=== PATIENT | male | born 1970 | race African-American/Black ===

== ENCOUNTER 2020-05-01 20:02 | Emergency (ER) | payer MEDICAID ==
[~2020-05-01] VITALS: Ht 172.7 cm; Wt 85.0 kg
[~2020-05-01 20:02] MED LIST: AMLODIPINE; ATENOLOL; HYDROCHLOROTHIAZIDE; PLAVIX
[2020-05-01 20:06] VITALS: BP 141/93
[2020-05-01] MEDS ORDERED: IBUPROFEN 600MG TABLET PO ONE (20:30)
== END 2020-05-01 21:27 | disposition home or self-care (01) ==
LOC: ER 20:02
DX: G89.29 Other chronic pain (principal); M79.605 Pain in left leg; I10 Essential (primary) hypertension; F12.90 Cannabis use, unspecified, uncomplicated; Z87.828 Personal history of other (healed) physical injury and trauma
CPT/HCPCS: 99281

== ENCOUNTER 2023-03-22 15:11 | Emergency (ER) | payer MEDICAID ==
[~2023-03-22] VITALS: Ht 177.8 cm; Wt 91.0 kg
[2023-03-22 15:23] VITALS: O2SAT 97
[2023-03-22] MEDS ORDERED: TETANUS, DIPHTHERIA, PERTUSSIS VAC/PF 0.5ML (>10YR OLD) IM ONE (18:15)
[2023-03-22] MEDS ORDERED: ATENOLOL 25MG TABLET PO ONE (19:00)
[2023-03-22] MEDS ORDERED: AMLODIPINE 10MG TABLET PO ONE (19:00)
[2023-03-22] MEDS ORDERED: HYDROCHLOROTHIAZIDE 25MG TABLET PO ONE (19:00)
[2023-03-22] MEDS ORDERED: AZIT250T12 MT (20:25)
[2023-03-22] MEDS ORDERED: AZITHROMYCIN 500 MG TABLET PO ONE (20:30)
[2023-03-22 21:39] VITALS: BP 195/133; PULSE 101; RESP 18; TEMP 97.6
== END 2023-03-22 21:41 | disposition home or self-care (01) ==
LOC: ER 15:11
DX: J18.9 Pneumonia, unspecified organism (principal); I16.0 Hypertensive urgency; F17.290 Nicotine dependence, other tobacco product, uncomplicated; S50.312A Abrasion of left elbow, initial encounter; W18.30XA Fall on same level, unspecified, initial encounter; Y93.89 Activity, other specified; Y92.89 Other specified places as the place of occurrence of the external cause; Y99.8 Other external cause status
CPT/HCPCS: 71045; 73080; 90471; 90715; 99284; 99406